=== PATIENT | female | born 1990 | race Two or more races ===

== ENCOUNTER 2020-08-08 02:24 | Emergency (ER) | payer MEDICAID, OTHER ==
[~2020-08-08] VITALS: Ht 160 cm; Wt 95.3 kg
--- NOTE | 2020-08-08 02:31 | NUR ---
PT AAOX4. AMBULATORY WITH STEADY GAIT. BIBRA FROM HOME C/O COUGH AND DIARRHEA X3 DAYS. PT STATED HER NEIGHBOUR'S MOTHER MIGHT BE POSITIVE FOR COVID. PT WAS PLACED IN BED 6 ON OR[employer]LE [employer] AND PULSE OX. RR EVEN AND UNLABORED. SKIN WARM AND INTACT. MD AT BEDSIDE FOR EVAL. AWAITING FOR EVAL AND ORDERS. WILL CONTINUE TO MONITOR PT.
--- NOTE | 2020-08-08 02:39 | NUR ---
EMT AT BEDSIDE FOR EKG
--- NOTE | 2020-08-08 02:42 | NUR ---
LINE ESTABLISHED RAC 20G, BLOOD DRAWN, SENT TO LAB.
--- NOTE | 2020-08-08 02:57 | NUR ---
URINE COLLECTED AND SENT TO LAB.
[2020-08-08] MEDS ORDERED: IV NS 0.9% 1,000 ML BAG IV ONE (03:00)
[2020-08-08 03:06] LABS: BASOPHILS # (AUTO) 0.1 /CMM (0.0-0.2); BASOPHILS % (AUTO) 0.8 % (0.0-2.0); EOSINOPHILS % (AUTO) 3.8 % (0.0-6.0); HEMATOCRIT 38 % (33-45); HEMOGLOBIN 12.6 g/dL (11.5-14.8); LYMPHOCYTES # (AUTO) 1.3 /CMM (0.8-4.8); LYMPHOCYTES % (AUTO) 15.9 % (20.0-44.0); MEAN CORPUSCULAR HGB CONC 33 g/dl (31.0-36.0); MEAN CORPUSCULAR VOLUME 82 fL (82-100); MONOCYTES # (AUTO) 0.5 /CMM (0.1-1.30); MONOCYTES % (AUTO) 5.7 % (2.0-12.0); NEUTROPHILS # (AUTO) 6.2 /CMM (1.8-8.9); NEUTROPHILS % (AUTO) 73.8 % (43.0-81.0); PLATELET COUNT (AUTO) 369 /CMM (150-450); RED BLOOD CELL COUNT(AUTO) 4.62 MIL/uL (4.0-5.2); WHITE BLOOD COUNT (AUTO) 8.4 K/uL (4.3-11.0)
[2020-08-08 03:11] LABS: APPEARANCE,URINE Clear (CLEAR); BILIRUBIN,URINE SMALL (NEGATIVE); BLOOD, URINE Trace-lysed Ery/uL (NEGATIVE); COLOR,URINE Yellow (YELLOW); LEUKOCYTE ESTERASE ,URINE Negative (NEGATIVE); NITRITE, URINE Negative (NEGATIVE); PROTEIN,URINE 30 mg/dl (NEGATIVE); UGLUCOSE Negative (NEGATIVE); UROBILINOGEN,URINE 0.2 EU/dL (0.2)
--- NOTE | 2020-08-08 03:11 | NUR ---
RADIOLOGY AT BEDSIDE FOR XRAY
--- NOTE | 2020-08-08 03:12 | NUR ---
PT RESTING COMFORTABLY IN BED, PLAN OF CARE EXPLAINED.
[2020-08-08 03:33] LABS: CALCIUM, SERUM 9.2 mg/dL (8.5-10.1); CREATININE 0.8 mg/dL (0.6-1.3)
[2020-08-08 03:42] LABS: BACTERIA,URINE Many /HPF (None Seen); CALCIUM OXALATE CRYSTALS,UR Many /HPF (None Seen); SQUAMOUS EPITHELIAL CELL,UR Moderate /HPF (None Seen); WBC,URINE 0-2 /HPF (0-3)
[2020-08-08 03:43] LABS: MUCUS,URINE Moderate /LPF (None Seen)
[2020-08-08 03:48] LABS: ALBUMIN 3.7 g/dL (3.4-5.0); BILIRUBIN,TOTAL 0.3 mg/dL (0.2-1.0)
[2020-08-08 04:15] VITALS: BP 131/73
--- NOTE | 2020-08-08 04:15 | NUR ---
Patient discharged to home in stable condition. Written and verbal after care instructions given. Patient verbalizes understanding of instruction. Pt ambulated with steady gait. Picked up by family.
--- NOTE | 2020-08-08 04:15 | NUR ---
IV removed. Catheter intact and site benign. Pressure and 4x4 applied to site. No bleeding noted.
== END 2020-08-08 04:16 | disposition home or self-care (01) ==
LOC: ER 02:29
DX: R05 Cough (principal); R19.7 Diarrhea, unspecified; R50.9 Fever, unspecified; Z20.828 Contact with and (suspected) exposure to other viral communicable diseases; R03.0 Elevated blood-pressure reading, without diagnosis of hypertension; E87.6 Hypokalemia
CPT/HCPCS: 36415; 71045; 80053; 81001; 83605; 85025; 87086; 93005; 96360; 99285; C9803; J7030; U0003; 81000-TC